=== PATIENT | male | born 1945 | race Caucasian/White ===

== ENCOUNTER 2017-01-18 11:28 | Inpatient (IN) | payer OTHER, MEDICARE ==
[~2017-01-18] VITALS: Ht 165.1 cm; Wt 78.6 kg
[2017-01-18] VITALS (8 sets, daily range): BP systolic 147–179; BP diastolic 71–98
[2017-01-18 11:52] LABS: HEMATOCRIT 44.9 % (42.0-52.0); HEMOGLOBIN 15.5 g/dl (14.0-18.0); MEAN CELL VOLUME 86.8 fl (80.0-94.0); MEAN CORPUSCULAR HGB CONC 34.5 g/dl (33.0-37.0); MEAN PLATELET VOLUME 10.2 fl (9.6-12.3); PLATELET COUNT AUTOMATED 193 10*3/uL (130-400); RED BLOOD COUNT 5.17 10*6/uL (4.50-5.90); RED CELL DISTRI WIDTH 12.1 % (0-14.5); WHITE BLOOD COUNT 5.4 10*3/uL (4.8-10.8)
[2017-01-18 12:02] LABS: ACT PARTIAL THROMBO TIME 25.9 SECONDS (20.8-31.5)
[2017-01-18 12:08] LABS: ALBUMIN 4.4 gm/dl (3.1-4.5); ALKALINE PHOSPHATASE 58 U/L (45-117); BUN 10 mg/dl (7-24); CHLORIDE 105 mmol/L (98-107); CREATININE 0.99 mg/dL (0.70-1.30); MAGNESIUM 2.3 mg/dL (1.5-2.1); POTASSIUM 4.1 mmol/L (3.5-5.1); SGOT/AST 20 IU/L (3-35); SGPT/ALT 34 U/L (12-78); SODIUM 138 mmol/L (136-145); TOTAL PROTEIN 8.3 gm/dL (6.4-8.2)
[2017-01-18 12:09] LABS: TROPONIN I < 0.015 ng/ml (<0.045)
[2017-01-18 12:12] LABS: BASOPHILS 1 % (0-1); TOTAL CELLS COUNTED 100 #CELLS
[2017-01-18 12:13] LABS: PLATELET SUFFICIENCY NORMAL (NORMAL)
--- NOTE | 2017-01-18 12:35 | NUR ---
PATIENT GIVEN WATER AT THIS TIME. LENNOX RODRIGUES
--- NOTE | 2017-01-18 13:53 | NUR ---
PATIENT IS RESTING IN BED, PATIENT IS ALERT AND ORIENTED X3, DENIES ANY COMPLAINTS AT THIS TIME, RESPIRATIONS ARE EASY AND NONLABORED, CALL [facility] REACH OF THE PATIENT, CONTINUING TO MONITOR THE PATIENT. LENNOX RODRIGUES
--- NOTE | 2017-01-18 14:59 | NUR ---
PATIENT TAKEN TO THE FLOOR BY [place] LEE RN PLACED ON THE MONITOR AND CARE TRANSFERRED TO SARITA OKEEFE RN. LENNOX RODRIGUES
[2017-01-18] MEDS ORDERED: METFORMIN500 MG PO (15:12)
[2017-01-18] MEDS ORDERED: AMARYL2 MG PO (15:12)
[2017-01-18] MEDS ORDERED: NORVASC2.5 MG PO (15:13)
[2017-01-18] MEDS ORDERED: LISINOPRIL5 MG PO (15:13)
[2017-01-18] MEDS ORDERED: TERAZOSIN HCL2 M1 PO (15:13)
[2017-01-18] MEDS ORDERED: VITAMIN D22000 UNIT PO (15:14)
[2017-01-18] MEDS ORDERED: ASPIRIN LOW DOS81 MG PO (15:14)
[2017-01-18] MEDS ORDERED: FISH OIL 1,2001 EACH PO (15:15)
--- NOTE | 2017-01-18 15:49 | NUR ---
DR. EASLEY'S OFFICE NOTIFIED OF CONSULT.
--- NOTE | 2017-01-18 16:00 | NUR ---
Time: 1599 A 71 year old MALE admitted to 5E under services of JANE PURI DO. Pt. arrived via stretcher from ER. Chief complaint: CHEST PAIN. SARITA OKEEFE
--- NOTE | 2017-01-18 16:00 | NUR ---
PT ARRIVED TO FLOOR VIA CART AT 1500. PT HAS NO S/S OF DISTRESS NOTED AT THIS TIME. PT ORIENTED TO ROOM. PT VOICED NO QUESTIONS AT THIS TIME.
--- NOTE | 2017-01-18 23:48 | NUR ---
ASSUMED CARE OF PATIENT AT THIS TIME. PATIENT PLEASANT AND COOPERATIVE AND ALERT AND ORIENTED AND AMBULATORY. DENIES ANY CHEST PAIN AT THIS TIME. HRR. NO EDEMA NOTED. NORMOACTIVE BOWELS X4 QUADS. DENIES N/V/D. DENIES SOB ON ROOM AIR. LUNGS JUST DIMINISHED T/O. CALL LIGHT WITHIN REACH, WILL MONITOR
[2017-01-19] VITALS: BP 150/90
[2017-01-19 06:41] LABS: HEMATOCRIT 43.1 % (42.0-52.0); HEMOGLOBIN 15.1 g/dl (14.0-18.0); MEAN CELL VOLUME 86.2 fl (80.0-94.0); MEAN CORPUSCULAR HGB 30.2 pg (27.0-31.0); MEAN PLATELET VOLUME 10.2 fl (9.6-12.3); PLATELET COUNT AUTOMATED 192 10*3/uL (130-400); RED CELL DISTRI WIDTH 12.2 % (0-14.5); WHITE BLOOD COUNT 4.9 10*3/uL (4.8-10.8)
[2017-01-19 07:09] LABS: ACT PARTIAL THROMBO TIME 26.3 SECONDS (20.8-31.5); ALBUMIN 4.1 gm/dl (3.1-4.5); ALKALINE PHOSPHATASE 49 U/L (45-117); BUN 12 mg/dl (7-24); CHLORIDE 104 mmol/L (98-107); CHOLESTEROL 156 mg/dL (<200); CREATININE 1.03 mg/dL (0.70-1.30); FREE T4 0.94 ng/dl (0.76-1.46); HDL CHOLESTEROL 39 mg/dl (40-60); LDL CHOLESTEROL 89 mg/dL (9-159); MAGNESIUM 2.4 mg/dL (1.5-2.1); PHOSPHOROUS 3.3 mg/dL (2.5-4.9); POTASSIUM 4.1 mmol/L (3.5-5.1); SGOT/AST 19 IU/L (3-35); SGPT/ALT 31 U/L (12-78); SODIUM 139 mmol/L (136-145); TOTAL PROTEIN 7.7 gm/dL (6.4-8.2); TRIGLYCERIDES 142 mg/dl (<150); VLDL CHOLESTEROL 28 mg/dL (6-40)
[2017-01-19 07:28] LABS: VITAMIN D, 25-HYDROXY 22.4 ng/mL (30-100)
[2017-01-19 07:49] LABS: ATYPICAL LYMPHS 2 % (0-0); BASOPHILS 1 % (0-1); PLATELET SUFFICIENCY NORMAL (NORMAL); TOTAL CELLS COUNTED 100 #CELLS
[2017-01-19 08:00] VITALS: BP 142/76
--- NOTE | 2017-01-19 10:21 | NUR ---
EDUCATION SHEET PROVIDED REGARDING ADMINISTRATION/SIDE EFFECTS OF COREG. PT VOICED UNDERSTANDING.
--- NOTE | 2017-01-19 11:20 | NUR ---
IN TO SEE PATIENT.
--- NOTE | 2017-01-19 11:21 | NUR ---
PATIENT REFUSED 1130 BSG AT THIS TIME.
--- NOTE | 2017-01-19 11:22 | NUR ---
LANNY FOR DISCHARGE PER .
[2017-01-19 12:00] VITALS: BP 126/83
[2017-01-19] MEDS ORDERED: CARVEDILOL6.25 MG PO (13:32)
[2017-01-19] MEDS ORDERED: ATORVASTATIN CA20 M1 PO (13:32)
--- NOTE | 2017-01-19 15:09 | NUR ---
Discharge instructions reviewed with patient/family. Patient receptive and verbalizes understanding. Follow-up care arranged. Written instructions given to patient/family. CARLYLE CHINO.
== END 2017-01-19 15:09 | disposition home or self-care (01) | DRG 313 ==
LOC: ED 11:28 → EDHOLD 13:55 → 5E 13:55
PROVIDERS: Emergency Medicine; Internal Medicine; ADMIT Internal Medicine
DX: R07.89 Other chest pain (principal); I25.110 Atherosclerotic heart disease of native coronary artery with unstable angina pectoris; E11.65 Type 2 diabetes mellitus with hyperglycemia; I10 Essential (primary) hypertension; N40.0 Benign prostatic hyperplasia without lower urinary tract symptoms; E55.9 Vitamin D deficiency, unspecified; E78.5 Hyperlipidemia, unspecified; Z87.891 Personal history of nicotine dependence; Z80.8 Family history of malignant neoplasm of other organs or systems; Z80.3 Family history of malignant neoplasm of breast